=== PATIENT | female | born 1985 | race Caucasian/White ===

== ENCOUNTER 2018-01-17 17:02 | Inpatient (IN) | payer OTHER ==
[2018-01-17] VITALS (12 sets, daily range): BP systolic 105–130; BP diastolic 62–84
[~2018-01-17] VITALS: Ht 162.6 cm; Wt 83.0 kg
[2018-01-17] MEDS ORDERED: PRENATAL TABLE1 EAC3 PO (17:36)
[2018-01-17] MEDS ORDERED: ZOLOFT50 MG PO (17:36)
[2018-01-17 18:32] LABS: BASOPHIL (%) 0.2 % (0-1); EOSINOPHIL (%) 0.3 % (0-5); HEMATOCRIT 34.3 % (36.0-46.0); HEMOGLOBIN 11.9 G/DL (11.9-15.5); IMMATURE GRANULOCYTE (%) 1.2 % (0.0-0.7); LYMPHOCYTE (%) 14.5 % (15-42); LYMPHOCYTE COUNT 1.3 K/uL (1.0-2.8); MCH 30.9 PG (29.0-34.0); MCHC 34.7 G/DL (30.0-36.0); MCV 89.1 FL (83-99); MONOCYTE (%) 8.2 % (3-12); MONOCYTE COUNT 0.8 K/uL (0-0.8); NEUTROPHIL (%) 75.6 % (45-76); NEUTROPHIL COUNT 6.9 K/uL (1.8-6.4); PLATELET COUNT 174 K/uL (156-360); RBC DIS.WIDTH-CV 13.3 % (11.8-14.6); RBC DIS.WIDTH-SD 43.2 % (39-53); RED BLOOD COUNT 3.85 M/uL (3.80-5.20); WHITE BLOOD COUNT 9.1 K/uL (4.1-10.2)
[2018-01-17 19:01] LABS: AMPHETAMINE NEGATIVE (500 ng/mL); BARBITURATES NEGATIVE (200 ng/mL); BENZODIAZEPINES NEGATIVE (150 ng/mL); BUPRENORPHINE NEGATIVE (10 ng/mL); COCAINE NEGATIVE (150 ng/mL); METHADONE NEGATIVE (200 ng/mL); METHAMPHETAMINE NEGATIVE (500 ng/mL); OPIATES (MORPHINE) NEGATIVE (100 ng/mL); OXYCODONE NEGATIVE (100 ng/mL); PHENCYCLIDINE NEGATIVE (25 ng/mL); PROPOXYPHENE NEGATIVE (300 ng/mL); THC CANNABINOIDS NEGATIVE (50 ng/mL); TRICYCLIC ANTIDEPRESSANTS NEGATIVE (300 ng/mL)
[2018-01-18] VITALS (12 sets, daily range): BP systolic 112–139; BP diastolic 58–86
[2018-01-19 06:03] LABS: BASOPHIL (%) 0.3 % (0-1); EOSINOPHIL COUNT 0.1 K/uL (0-0.3); HEMATOCRIT 31.9 % (36.0-46.0); HEMOGLOBIN 10.6 G/DL (11.9-15.5); LYMPHOCYTE (%) 21.7 % (15-42); LYMPHOCYTE COUNT 2.5 K/uL (1.0-2.8); MCH 30.6 PG (29.0-34.0); MCHC 33.2 G/DL (30.0-36.0); MCV 92.2 FL (83-99); MONOCYTE (%) 7.3 % (3-12); MONOCYTE COUNT 0.8 K/uL (0-0.8); NEUTROPHIL (%) 68.7 % (45-76); NEUTROPHIL COUNT 7.9 K/uL (1.8-6.4); PLATELET COUNT 176 K/uL (156-360); RBC DIS.WIDTH-CV 13.6 % (11.8-14.6); RBC DIS.WIDTH-SD 45.5 % (39-53); RED BLOOD COUNT 3.46 M/uL (3.80-5.20); WHITE BLOOD COUNT 11.5 K/uL (4.1-10.2)
[2018-01-19 07:20] VITALS: BP 119/58
[2018-01-19 14:29] VITALS: BP 117/74
[2018-01-19 23:00] VITALS: BP 134/82
[2018-01-20] MEDS ORDERED: IBUPROFEN800 MG PO (08:33)
== END 2018-01-20 13:55 | disposition home or self-care (01) | DRG 775 ==
LOC: LDRP-OP 17:02 → 2WEST 17:03
PROVIDERS: Advanced Practice Midwife
DX: O99.344 Other mental disorders complicating childbirth (principal); O99.354 Diseases of the nervous system complicating childbirth; F41.0 Panic disorder [episodic paroxysmal anxiety]; Z37.0 Single live birth; Z3A.38 38 weeks gestation of pregnancy; E66.3 Overweight; G43.909 Migraine, unspecified, not intractable, without status migrainosus; O70.1 Second degree perineal laceration during delivery; O12.04 Gestational edema, complicating childbirth; O99.214 Obesity complicating childbirth; O77.0 Labor and delivery complicated by meconium in amniotic fluid; Z87.440 Personal history of urinary (tract) infections; Z68.31 Body mass index [BMI] 31.0-31.9, adult; Z80.3 Family history of malignant neoplasm of breast; Z82.49 Family history of ischemic heart disease and other diseases of the circulatory system
CPT/HCPCS: 85025; C1755; G0378; J3010; J7120